=== PATIENT | female | born 1990 ===

== ENCOUNTER 2016-04-23 20:54 | Emergency (ER) | payer OTHER ==
[2016-04-23 21:35] LABS: BASOPHILS % (AUTO) 1 % (0-3); EOSINOPHILS % (AUTO) 2 % (0-9); HEMATOCRIT 32 % (35-47); MEAN CORPUSCULAR HGB CONC 35.2 gm/dl (32.0-36.0); MONOCYTES % (AUTO) 6.6 % (0-12); NEUTROPHILS % (AUTO) 62.3 % (37-80)
[2016-04-23 21:41] VITALS: BP 104/52; PULSE 75; RESP 16; TEMP 98.4; O2SAT 96
[2016-04-23] MEDS ORDERED: LEVONORGESTREL 1.5 MG TAB PO ONE (21:54)
== END 2016-04-23 22:10 | disposition home or self-care (01) ==
LOC: ED 20:54
DX: N93.9 Abnormal uterine and vaginal bleeding, unspecified (principal); Z97.5 Presence of (intrauterine) contraceptive device
CPT/HCPCS: 36415; 84703; 85025; 99282

== ENCOUNTER 2017-04-16 14:31 | Observation (INO) | payer OTHER ==
[2016-04-23 21:41] VITALS: O2SAT 96
[2017-04-16 15:09] VITALS: BP 127/70; PULSE 72; TEMP 97.4
== END 2017-04-16 15:55 | disposition home or self-care (01) ==
LOC: OB 14:31
PROVIDERS: ADMIT Family Medicine; ATTEND Family Medicine
DX: O46.93 Antepartum hemorrhage, unspecified, third trimester (principal); Z3A.39 39 weeks gestation of pregnancy
CPT/HCPCS: 59025; 84112